=== PATIENT | female | born 1950 | race Caucasian/White ===

== ENCOUNTER 2025-05-19 16:12 | Inpatient (IN) | payer MEDICARE, OTHER, SELFPAY ==
[2025-05-19] VITALS (18 sets, daily range): BP systolic 115–200; BP diastolic 60–133
[2025-05-19 13:42] LABS: Glucose - Point of Care 156 mg/dl (70-99)
[2025-05-19] MEDS: ATIVAN 1 MG IV (13:45)
[2025-05-19 13:53] LABS: % Basophils 0.4 % (0-2); % Immature Granulocytes 0.3 % (0-0.5); % Lymphocytes 19.7 % (20.5-51.1); % Monocytes 5.6 % (1.7-9.3); Absolute Basophils 0.1 10^3/uL (0-0.2); Absolute Lymphocytes 2.7 10^3/uL (1.2-3.4); Absolute Monocytes 0.8 10^3/uL (0.1-0.6); Absolute Neutrophils 10.2 10^3/uL (1.4-6.5); Hematocrit 39.1 % (37.0-47.0); Hemoglobin 13.8 g/dL (12.0-16.0); Mean Corp Hgb Conc. 35.3 g/dL (33.0-37.0); Mean Corpuscular Hgb 31.9 pg (27.0-31.0); Mean Corpuscular Volume 90.3 fL (81.0-99.0); Mean Platelet Volume 9.6 fL (7.4-10.4); Nucleated Red Blood Cells % 0 %; Platelet Count 318 10^3/uL (130-400); Red Blood Cell Count 4.33 10^6/uL (4.20-5.40); Red Cell Dist. Width 14.6 % (11.5-14.5); White Blood Cell Count 13.8 10^3/uL (4.8-10.8)
[2025-05-19] MEDS: HALDOL 2.5 MG IV (13:53)
[2025-05-19 13:59] LABS: Urine Albumin 3+ (Neg - Trace); Urine Bilirubin Negative (Negative); Urine Character Cloudy (Clear); Urine Color Yellow; Urine Glucose Negative (Negative); Urine Ketone 3+ (Negative); Urine Leukocyte 3+ (Negative); Urine Nitrite Positive (Negative); Urine Occult Blood 3+ (Negative); Urine Urobilinogen Negative (Neg - 1+)
[2025-05-19 14:21] LABS: AST (SGOT) 27 U/L (14-36); Albumin 5.5 g/dl (3.5-5.0); Alkaline Phosphatase 71 U/L (38-126); Blood Urea Nitrogen 20 mg/dl (7-17); Calcium 11.2 mg/dl (8.4-10.2); Carbon Dioxide 20 mmol/L (22-30); Chloride 103 mmol/L (98-107); Glucose 166 mg/dl (70-99); Potassium 4.6 mmol/L (3.5-5.1); Sodium 141 mmol/L (135-145); Total Protein 8.1 g/dl (6.3-8.2); eGFR > 60.00
[2025-05-19 14:30] LABS: Urine Squamous Cell 0-2 /LPF (Few)
[2025-05-19 14:31] LABS: Urine Amorphous Seen
[2025-05-19 14:34] LABS: Urine Bacteria Many (Negative); Urine White Cell >100 /HPF (0-5)
[2025-05-19] MEDS: AZACTAM 2000 MG IV (14:37)
[2025-05-19 14:38] LABS: ALT (SGPT) < 30 U/L (0-35)
[2025-05-19 14:48] LABS: Lactic Acid 7.5 mmol/L (0.7-2.0)
--- NOTE | 2025-05-19 14:51 | ED.GENMED ---
History of Present Illness
General
Chief Complaint: Change in Mental Status
Source: patient and other (friend)
Exam Limitations: altered mental status
Time Seen by Provider: 05/19/25 13:25
Nursing documentation reviewed up to this point in time: agreed with
History of Present Illness
History of Present Illness:
Note:
CHIEF COMPLAINT(S)
Agitation.
HISTORY OF PRESENT ILLNESS
The patient is a 75-year-old female who presents with agitation, back pain. She has experienced this pain for several months, described as very severe, and has not responded to potential initial therapeutic interventions, possibly including an
epidural steroid injection, which did not alleviate the symptoms. The patient was on the way to a pain management appointment in another town when she became agitated, prompting emergency evaluation. The pain was described as incapacitating, and
upon arrival, she was moaning in pain and required assistance to leave the car, indicating significant distress and limitations.
ADDITIONAL HISTORY OBTAINED FROM SOURCES OTHER THAN THE PATIENT
According to a family member, the patient became acutely ill during a trip and required a stretcher for transport due to her severe back pain and associated distress.
ALLERGIES
The patient has allergy to penicillin that is unknown
REVIEW OF SYSTEMS
- Musculoskeletal: back pain.
- Neurological: Altered mental status noted as confusion.
PHYSICAL EXAM
-agitate, temperature 100.2 rectal
- Cardiovascular: Regular rate and rhythm, S1 and S2 present, no S3 or S4.
- Gastrointestinal: Abdomen soft and non-tender.
- Extremities: Normal pulses in all extremities, moving all extremities, no edema.
- Neurological: Confused, moving all extremities.
PLAN
- Evaluate and manage fever and altered mental status
- Consider imaging studies to assess underlying etiology of back pain.
- Pain management strategies to be implemented.
- Monitor neurological status given altered mental state.
DIFFERENTIAL DIAGNOSIS
-sepsis
-UTI
-Pneumonia
CARE-UPDATE
05/19/25 - 14:58
Patient remains calm following administration of Haldol. Chest X-ray returned inconclusive. Head X-ray shows no acute findings. Lab results indicate elevated lactate levels. Urinalysis confirms UTI, contributing to a sepsis diagnosis. Initiated IV
fluids and ordered IV Azactam. Patient to be admitted under the hospitalists care. Transfer planned to ICU for closer monitoring and management.
Disposition:
SUMMARY OF ENCOUNTER
The patient presented with agitation and back pain, accompanied by confusion and fever, and was found to have signs suggestive of a urinary tract infection contributing to sepsis.
DISPOSITION
The patient is to be admitted to the ICU for further monitoring and management under the hospitalist service.
ASSESSMENT
The patient has a urinary tract infection contributing to a sepsis diagnosis with accompanying altered mental status.
EMERGENCY TREATMENTS ADMINISTERED
The patient received intravenous fluids and intravenous Aztreonam (Azactam) for the treatment of the urinary tract infection.
REASSESSMENT
Following administration of Haldol, the patient remained calm.
MEDICATION RECONCILIATION
Aztreonam intravenous and Haloperidol administered for agitation.
MEDICAL DECISION MAKING
1. NUMBER & COMPLEXITY OF PROBLEMS: Chronic back pain, urinary tract infection, and sepsis affecting care. Differential diagnoses reviewed included sepsis, UTI, and pneumonia.
2. DATA REVIEWED:
- Labs reviewed indicated elevated lactate levels supporting a sepsis diagnosis.
- Urinalysis confirmed the presence of a urinary tract infection.
- Imaging included a chest X-ray, which was inconclusive, and a head X-ray showing no acute findings.
3. RISK: Consideration of admission due to the complexity and risk associated with the patient�s sepsis and altered mental status. ICU admission is appropriate due to the high risk and need for close monitoring.
PATHOLOGIES TO CONSIDER
Sepsis (fever + hypotension + AMS), Meningitis (fever + neck stiffness/AMS), Spinal epidural abscess (IVDU + back pain + fever/neuro signs) given the back pain and altered mental status.
Past History
Past History
ED Past Medical History: HTN, Hypercholesterolemia and NIDDM
ED Past Surgical History: Orthopedic (Rotator cuff repair, torn meniscus repair)
Social History
Tobacco: Non-smoker
Alcohol: None
Drug: None
Personal:
Phy Exam
Physical Exam
Physical Exam:
.
Course
Orders/Labs/Results
Orders:
Orders
05/19/25 13:29
Lorazepam [Ativan] 2 mg .ROUTE .STK-MED ONE
05/19/25 13:34
Straight cath- Treatment ONCE
05/19/25 13:35
CT Head W/o Iv Contrast Urgent
Comment:
Reason For Exam: agitation, altered mental status
Acetaminophen [Tylenol/Feverall] 650 mg .ROUTE .STK-MED ONE
05/19/25 13:36
IV Insert/Care/Rem.- Treatment PRN
Lorazepam [Ativan] 1 mg IV NOW STA
CR Chest Portable - 1 View Urgent
Comment:
Reason For Exam: fever
Reason Study Needs to be Portable: Patient Unstable
05/19/25 13:40
Complete Blood Count/With Diff Urgent
Comprehensive Metabolic Panel Urgent
Lactic Acid Q4H
Comment: CANCEL 2nd LACTIC ACID IF 1st LACTIC ACID IS LESS THAN 2
Blood Culture Q30M
PILY Source: Blood/Venous
Specimen Description:
05/19/25 13:42
Urinalysis Reflex To Culture Urgent
Date Specimen was Collected: 05/19/25
Time Specimen was Collected: 13:40
Urine Microscopic Reflex Cult Urgent
Urine Culture Urgent
PILY Source: U
Specimen Description:
Date Specimen was Collected: 05/19/25
Time Specimen was Collected: 13:40
05/19/25 13:47
Haloperidol Lactate [Haldol] 5 mg .ROUTE .STK-MED ONE
05/19/25 13:51
Haloperidol Lactate [Haldol] 2.5 mg IV NOW STA
05/19/25 13:54
Electrocardiogram (*1) Urgent
Reason for Study: Tachycardia
EKG- Treatment ONCE
05/19/25 14:15
Blood Culture Q30M
PILY Source: Blood/Venous
Specimen Description:
05/19/25 14:26
Aztreonam [Azactam] 2,000 mg IV NOW STA
05/19/25 14:35
Ammonia Urgent
05/19/25 14:51
0.9% Sodium Chloride 1000 ml [Nss] 2,100 ml IV NOW STA
05/19/25 17:45
Lactic Acid Q4H
Comment: CANCEL 2nd LACTIC ACID IF 1st LACTIC ACID IS LESS THAN 2
Abnormal Lab Results
05/19/25 05/19/25 05/19/25
13:33 13:40 13:42
WBC 13.8 H 10^3/uL
(4.8-10.8)
MCH 31.9 H pg
(27.0-31.0)
RDW 14.6 H %
(11.5-14.5)
Absolute Neuts (auto) 10.2 H 10^3/uL
(1.4-6.5)
Absolute Monos (auto) 0.8 H 10^3/uL
(0.1-0.6)
Lymphocytes % 19.7 L %
(20.5-51.1)
Carbon Dioxide 20 L mmol/L
(22-30)
BUN 20 H mg/dl
(7-17)
Glucose 166 H mg/dl
(70-99)
Lactic Acid 7.5 H* mmol/L
(0.7-2.0)
Calcium 11.2 H mg/dl
(8.4-10.2)
Total Bilirubin 3.0 H mg/dl
(0.2-1.3)
Ammonia
Albumin 5.5 H g/dl
(3.5-5.0)
Urine Ketones 3+ A
(Negative)
Ur Occult Blood Reflex 3+ A
(Negative)
Urine Nitrite (Reflex) Positive A
(Negative)
Leukocyte Esterase Rfl 3+ A
(Negative)
Urine RBC 7-10 A /HPF
(0-2)
Urine WBC (Reflex) >100 A /HPF
(0-5)
Urine Bacteria (Reflex) Many A
(Negative)
Urine Albumin (Reflex) 3+ A
(Neg - Trace)
POC Glucose 156 H mg/dl
(70-99)
05/19/25
14:35
WBC
MCH
RDW
Absolute Neuts (auto)
Absolute Monos (auto)
Lymphocytes %
Carbon Dioxide
BUN
Glucose
Lactic Acid
Calcium
Total Bilirubin
Ammonia < 9 L umol/L
(9-30)
Albumin
Urine Ketones
Ur Occult Blood Reflex
Urine Nitrite (Reflex)
Leukocyte Esterase Rfl
Urine RBC
Urine WBC (Reflex)
Urine Bacteria (Reflex)
Urine Albumin (Reflex)
POC Glucose
05/19/25 13:40
05/19/25 13:40
Vital Signs
Initial and Last Documented VS:
Initial Vital Signs
Temp
100.2 F
05/19/25 13:24
Last Documented Vital Signs
Temp Pulse Resp BP Pulse Ox
100.2 F 116 18 172/124 94
05/19/25 13:26 05/19/25 15:30 05/19/25 15:30 05/19/25 14:40 05/19/25 14:52
*Pulse Oximetry
SaO2: 94
Oxygen Mode of Delivery: Room air
*Critical Care Note
Total Time (30-74mins, 75-104mins- exclusive of procedures): 32
comment:
Critical care statement: A total of 32 minutes of critical care time was provided for this patient. This includes management of unstable vital signs, evaluation of the patient at bedside, reviewing the patient's pertinent medical records, discussion
with consultants, review of old EKGs and review of pertinent medical records. This time with separate from time utilized to perform the aforementioned documented procedures
ED Attending Note
-
Portions of this chart may have been created with voice recognition software.� Occasional wrong word or��sound alike� substitutions may have occurred due to the inherent limitations of voice recognition software.
Discharge Plan
Departure
Patient Disposition: Admit
Date of Disposition: 05/19/25
Time of Disposition: 14:47
Admit to: ICU
Presentation/result/management discussed w/ accepting MD/DO: Hospitalist
Patient with high blood pressure during this ER visit?: Yes
Condition: Fair
Discharge Problem:
Sepsis, Acute UTI (urinary tract infection), Acute alteration in mental status
Prescriptions:
No Action
lorazepam 0.5 MG tablet
0.5 mg PO HSPRN PRN (Reason: sleep)
metformin 750 MG tablet extended release 24 hr
750 mg PO BID
cholecalciferol (vitamin D3) 2,000 UNITS tablet
2,000 units PO DAILY
lisinopril 40 mg Tablet
40 mg PO DAILY
atorvastatin [Lipitor] 40 mg Tablet
40 mg PO QPM
Referrals:
Sanjuana Miranda MD [Family Provider, Family Practice]
Interventions
Interventions:
*Risk Screen - Suicide Last Done: 05/19/25 13:26
*General Assessment Last Done: 05/19/25 13:26
*Neglect/Abuse Screening Last Done: 05/19/25 13:26
*ED- Fall Risk Assessment Last Done: 05/19/25 13:26
*ED COVID-19 Vaccine History Last Done: 05/19/25 13:26
ED- Neurological Assessment Last Done: 05/19/25 13:26
Discharge Date and Time
Print Language: AFGHAN
[2025-05-19] MEDS: NSS 2100 ML IV (14:55)
[2025-05-19 15:02] LABS: Ammonia < 9 umol/L (9-30)
--- NOTE | 2025-05-19 15:20 | HPS.HSE ---
Family Physician
-
Family Physician: Sanjuana Miranda MD
Chief Complaint
-
agitation
History of Present Illness
75F HX HLD, HTN, DMT2, HX PCN allergy pw agitation and back pain.
- combative on arrival - verbally and physically in acut behavioral dysfunction
- report back pain for several months, reports very severe, not responded to potential initial therapeutic interventions, possibly including an epidural steroid injection, which did not alleviate the symptoms.
- on the way to a pain management appointment in another town when she became agitated, prompting emergency evaluation.
- pain was described as incapacitating, and upon arrival
- she was moaning in pain and required assistance to leave the car, indicating significant distress and limitations.
Medical History
Past Medical History
Past Medical History: Reports HTN, Hypercholesterolemia, NIDDM and Other (low back pain )
Past Surgical History: Reports Other (Not available due to AMS )
Social History
Unable to obtain full social history at this time due to: Other (in AMS )
Family History
Family History: Unable to Obtain (due to TME )
Allergies / Home Medications
Allergies reflects when Allergies were last updated in flux - [facility].
Home Medications with original date entered in flux - [facility]
Allergy/Medication List:
Allergies
Allergy/AdvReac Type Severity Reaction Status Date / Time
Penicillins Allergy Unknown Verified 11/27/20 02:26
Home Medications
cholecalciferol (vitamin D3) 50 mcg (2,000 unit) tablet 2,000 units PO DAILY 11/27/20
lorazepam 0.5 mg tablet 0.5 mg PO HSPRN PRN sleep 11/27/20
metformin 750 mg tablet,extended release 24 hr 750 mg PO BID 11/27/20
atorvastatin 40 mg tablet (Lipitor) 40 mg PO QPM 05/19/25
lisinopril 40 mg tablet 40 mg PO DAILY 05/19/25
Review of Systems
-
Unable to obtain full review of systems at this time due to: Other ( verbally and physically in acute behavioral dysfunction )
Physical Exam
Vital Signs
Vital Signs
Temp Pulse Resp BP Pulse Ox
100.2 F 123 29 172/124 94
05/19/25 13:26 05/19/25 14:15 05/19/25 13:45 05/19/25 14:40 05/19/25 14:52
Physical Exam
General: Fever (100.2 rectal ) and Other (lethargic and restless ); No Conversant
HEENT: NormoCephalic, Moist mucous membranes and Atraumatic
Respiratory: Clear
Cardiac: S1/S2 and Regular Rhythm; No Murmur or Rub
GI: Soft, Non Tender, Non Distended and Normal Bowel Sounds; No Organomegaly
Rectal: Deferred by Provider
Musculoskeletal: No Clubbing, No Cyanosis and No Edema
Skin: No Rash
Neuro: Nonfocal/grossly intact
Laboratory Results
-
05/19/25 13:40
05/19/25 13:40
Laboratory Results
Lactic Acid 7.5 mmol/L (0.7-2.0) H* 05/19/25 13:40
Total Bilirubin 3.0 mg/dl (0.2-1.3) H 05/19/25 13:40
AST 27 U/L (14-36) 05/19/25 13:40
ALT < 30 U/L (0-35) 05/19/25 13:40
Alkaline Phosphatase 71 U/L (38-126) 05/19/25 13:40
Data Reviewed
-
CT Scan: Report Reviewed by me
Lab Data: Labs Reviewed by me
Impression/Plan
-
05/19/25
13:24 05/19/25
13:26
Temp 100.2 F
Temp route: Rectal Rectal
Pulse 122
Resp Rate 19
Blood pressure 157/90
SaO2 99
Laboratory Tests
05/19/25 05/19/25 05/19/25
13:33 13:40 13:41
WBC 13.8 H
Absolute Neuts (auto) 10.2 H
Carbon Dioxide 20 L
BUN 20 H
Creatinine 0.7
eGFR > 60.00
Lactic Acid Pending
Calcium 11.2 H
Total Bilirubin 3.0 H
AST 27
ALT < 30
Alkaline Phosphatase 71
Ammonia
Albumin 5.5 H
Urine Nitrite (Reflex)
Leukocyte Esterase Rfl
Urine RBC
Urine WBC (Reflex)
POC Glucose 156 H
05/19/25 05/19/25
13:42 14:35
WBC
Absolute Neuts (auto)
Carbon Dioxide
BUN
Creatinine
eGFR
Lactic Acid
Calcium
Total Bilirubin
AST
ALT
Alkaline Phosphatase
Ammonia < 9 L
Albumin
Urine Nitrite (Reflex) Positive A
Leukocyte Esterase Rfl 3+ A
Urine RBC 7-10 A
Urine WBC (Reflex) >100 A
POC Glucose
UCX and BCx sent
CXR
Suspect mild infectious/inflammatory pneumonitis.
CT Head W/o Iv Contrast
No acute intracranial abnormality noted.
NO PRIOR hospitalist admission:
ASSESSMENT & PLAN
Pending Rx reconciliation
Severe sepsis( LA 7) due to UTI - s/p 2.1L NS and IV Aztreonam at ER
AMS with agitation due to hyperactive TME - associated verbally and physically in acute behavioral dysfunction - calm s/p IV Haldol and IV ativan at ER
Elevated TB 3.0 due to sepsis
LA 7
- CXR final report mild infectious/inflammatory pneumonitis
- NEG HCT for acute pathology
- Urinalysis confirms UTI
- switch to LR IV in place of NS
- c/w IV Aztreonam
- Trend LA, WCC and BCx and UCx
- PO PRN Risperidone M or IV Haldol PRN
- aspiration precaution due to TME - Nursing to screen for PO
- Fall precaution
- soft wrist restraint as indicated for acute behavioral dysfunction
- ICU consult
Known PMH
DMT2 - add ISS low, hod metformin
Benign HTN - hold Lisinopril , observe BP
HLD - c/w Lipitor
DVT Px: LMWH
Code: Full
ICU
Total Critical Care Time__50___ minutes. I was immediately available to the patient and staff. I personally examined, reviewed labs, diagnostic images/reports, interpretations, treatment plans, discussed patient care with other providers and
family or caregivers (if patient is unable to make decisions), entered orders as appropriate and documented the medical record.
[2025-05-19 17:25] LABS: Lactic Acid 2.7 mmol/L (0.7-2.0)
[2025-05-19] MEDS: PRECEDEX 100 IV ×2 (18:15→23:40)
--- NOTE | 2025-05-19 18:17 | CON.INTV ---
Consultation
Consultation Request
Date/Time Consultation Requested: 05/19/2025
Date/Time Consultation Performed: 05/19/2025
Requesting Provider: Dr. Sanders
Performing Provider: Dr. Ishan Diallo
Reason for Consultation: Severe sepsis-toxic metabolic encephalopathy
Medical History
-
History of Present Illness:
75-year-old woman with past medical history significant for hyperlipidemia, hypertension, type 2 diabetes, presented with back pain and agitation.
Patient unable to provide history.
Per records combative on arrival-not cooperative with physical exam or procedures.
Apparently complaining of back pain for several months at times very severe. Underwent prior epidural injections which were not effective at alleviating her pain.
On route to a pain medicine doctor for second opinion became agitated.
Patient was found to be febrile.
Tachycardic/hypertensive due to agitation.
Unable to provide history
Past Medical History
Past Medical History: Other (Unable to obtain)
Social History
Tobacco: Other (Unable to obtain)
Family History
Family History: Unable to Obtain (Due to toxic metabolic encephalopathy)
Allergies / Home Medications
Allergies
Allergy/AdvReac Type Severity Reaction Status Date / Time
Penicillins Allergy Unknown Verified 11/27/20 02:26
Home Medications
�Medication �Instructions �Recorded �Confirmed �Last Taken �Type
cholecalciferol (vitamin D3) 50 2,000 units PO DAILY 11/27/20 05/19/25 Unknown History
mcg (2,000 unit) tablet
lorazepam 0.5 mg tablet 0.5 mg PO HSPRN PRN sleep 11/27/20 05/19/25 Unknown History
metformin 750 mg tablet,extended 750 mg PO BID 11/27/20 05/19/25 Unknown History
release 24 hr
atorvastatin 40 mg tablet (Lipitor) 40 mg PO QPM 05/19/25 05/19/25 Unknown History
lisinopril 40 mg tablet 40 mg PO DAILY 06/19/25 06/19/25 Unknown History
Review of Systems
-
Unable to Obtain full review of systems at this time due to: Acuity
Vitals / Labs / Diagnostic Testing
Vital Signs
Temp Pulse Resp BP Pulse Ox
101.6 F H 122 21 149/133 96
05/19/25 18:13 05/19/25 18:00 05/19/25 18:00 05/19/25 18:00 05/19/25 18:00
Lab Data
05/19/25 13:40
05/19/25 13:40
Diagnostic Testing:
Physical Exam
-
HEENT: Normocephalic
Cardiovascular: S1/S2
Respiratory: Clear
GI: Soft
Neurology: Other (Agitated, moaning, not cooperative. Moving 4 extremities.)
Skin: Warm
General: Comfortable
Assessment
-
Toxic metabolic encephalopathy
CT head: Reviewed showed no intracranial abnormality.
Severe sepsis suspected-fevers/leukocytosis/increased lactic acid
UTI suspected- Urinalysis suggestive of UTI with many bacteria, positive nitrates and greater than 100 WBCs
Chest x-ray: Possible pneumonitis, no camryn infiltrate.
Acute on chronic back pain
Conditions present prior admission:
Type 2 diabetes
Hypertension
Hyperlipidemia
Chronic back pain
Assessment and plan:
Critically ill-agitated, combative toxic metabolic encephalopathy, febrile due to sepsis from urinary source.
I agree with current antibiotic
Blood culture
Trend lactic acid
Currently agitated-hypertensive and tachycardic
Follow fever curve and leukocytosis
-
Status post IV fluid resuscitation
Will reassess for further IV fluid needs depending on clinical situation
Pressors will be used if needed for persistent mean atrial blood pressure less than 65 mmHg despite IV fluids.
-
Agree with Haldol IV as needed
Can use oral Risperdal if patient allows.
Will start Precedex drip for behavior control
Patient take as needed benzodiazepine to sleep at home-May need to add some of that overnight depending on clinical situation
-
Glycemic control with insulin sliding scale.
Patient currently n.p.o.
-
N.p.o.
IV Tylenol as needed for temp greater than 1 1 �F
Head of bed elevation
Restraints
DVT prophylaxis with subcu Lovenox
-
Critical care statement: A total of 34 minutes of critical care time was provided for this patient today. This includes management of unstable vital signs, evaluation of the patient at bedside, reviewing the patient's pertinent medical records
including ventilator settings, arterial blood gases, radiographs, microbiology, laboratory evaluations and discussion with primary team, critical care nursing, and respiratory therapy.
[2025-05-19 18:18] LABS: Glucose - Point of Care 140 mg/dl (70-99)
[2025-05-19] MEDS: NOVOLOG FLEXPEN-LOW RESISTANCE SC (18:24)
[2025-05-19] MEDS: LIPITOR PO (18:25)
[2025-05-19] MEDS: LOVENOX 40 MG SC (18:28)
[2025-05-19] MEDS: OFIRMEV 100 IV (18:29)
[2025-05-19] MEDS: LR 1000 IV (18:31)
--- NOTE | 2025-05-19 19:33 | PTCARENOTE ---
Addendum entered by Ileana Perry RN 05/19/25 19:44:
Axillary temp down to 99.4.
Original Note:
Rec'd patient from ED around 1800. Patient agitated and restless in bed. Confused. Unable to reorient. Nonsensical speech. Restraints minimally effective. Tachycardic (ST). Hypertensive. Febrile; axillary temp of 101.6. Maitre D at bedside. Order
for Ofirmev obtained and administered. Precedex drip initiated. Patient with one iv site in RAC. Additional site placed in left forearm for iv infusions. Second set of blood cultures sent. Patient without void since prior to 1400. While scanning
bladder, patient saturated bed. Complete bed bath performed and purewick placed for I/O. Patient resting comfortably and vitals improved after interventions. HR down to 80-90's. RR 19-20. Pulse ox 96-97% on RA. BP remains elevated. OVEN DRIER TENDER notified.
--- NOTE | 2025-05-19 20:00 | PTCARENOTE ---
Pt received start of shift, HR SR w/ BBB on telemetry. Pt completely disoriented, uncooperative, combative. 4 point restraints and b/l mitts in place. Precedex infusing as charted in worklist. Pt incontinent of urine, purewick in place. yellow
urine. Remains on RA.
[2025-05-19 21:37] LABS: Lactic Acid 1.8 mmol/L (0.7-2.0)
[2025-05-19] MEDS: STERILE WATER FOR INJECTION 10 ML IV (22:05)
[2025-05-19] MEDS: AZACTAM 1000 MG IV (22:05)
[2025-05-19 23:12] LABS: Glucose - Point of Care 166 mg/dl (70-99)
[2025-05-19] MEDS: NOVOLOG FLEXPEN-LOW RESISTANCE 1 UNITS SC (23:54)
[2025-05-20] VITALS (16 sets, daily range): BP systolic 126–188; BP diastolic 58–85; PULSE 78; BMI 25.5
--- NOTE | 2025-05-20 | PTCARENOTE ---
Pt continues to be uncooperative and disoriented. Precedex gtt titrated according to worklist. No further changes in assessment.
--- NOTE | 2025-05-20 00:13 | PTCARENOTE ---
DP and PT pulses continue to be present with doppler. 2L NC overnight as pt POX dips to high 80s while asleep. Grimm care provided.
[2025-05-20] MEDS: PRECEDEX 100 IV (04:35)
[2025-05-20 04:36] LABS: % Basophils 0.3 % (0-2); % Eosinophils 0.3 % (0-6); % Immature Granulocytes 0.5 % (0-0.5); % Lymphocytes 33.9 % (20.5-51.1); % Monocytes 6.8 % (1.7-9.3); % Neutrophils 58.2 % (42.2-75.2); Absolute Monocytes 0.6 10^3/uL (0.1-0.6); Absolute Neutrophils 5.1 10^3/uL (1.4-6.5); Hematocrit 29.8 % (37.0-47.0); Hemoglobin 10.3 g/dL (12.0-16.0); Mean Corp Hgb Conc. 34.6 g/dL (33.0-37.0); Mean Corpuscular Volume 92.5 fL (81.0-99.0); Mean Platelet Volume 10.1 fL (7.4-10.4); Nucleated Red Blood Cells % 0 %; Platelet Count 177 10^3/uL (130-400); Red Blood Cell Count 3.22 10^6/uL (4.20-5.40); Red Cell Dist. Width 14.6 % (11.5-14.5); White Blood Cell Count 8.8 10^3/uL (4.8-10.8)
[2025-05-20] MEDS: LR 1000 IV (04:36)
[2025-05-20 04:52] LABS: ALT (SGPT) 17 U/L (0-35); AST (SGOT) 20 U/L (14-36); Albumin 3.5 g/dl (3.5-5.0); Alkaline Phosphatase 43 U/L (38-126); Blood Urea Nitrogen 15 mg/dl (7-17); Carbon Dioxide 23 mmol/L (22-30); Chloride 112 mmol/L (98-107); Glucose 162 mg/dl (70-99); Magnesium 1.5 mg/dl (1.6-2.3); Potassium 3.5 mmol/L (3.5-5.1); Sodium 139 mmol/L (135-145); Total Bilirubin 1.7 mg/dl (0.2-1.3); Total Protein 5.6 g/dl (6.3-8.2); eGFR > 60.00
[2025-05-20] MEDS: MAGNESIUM SULFATE 50 IV (05:42)
[2025-05-20] MEDS: KCL 260 MEQ IV (05:45)
[2025-05-20] MEDS: AZACTAM 1000 MG IV (06:05)
[2025-05-20] MEDS: STERILE WATER FOR INJECTION 10 ML IV ×2 (06:05→10:33)
--- NOTE | 2025-05-20 06:24 | PTCARENOTE ---
On waking for morning labs, pt drowsy but oriented to self and year. Able to remember she is in [facility]. Asking to call her mom and asking about her current situation. Repeats self occasionally, but much more oriented and appropriate
conversation. Cooperative. Precedex gtt weaning down as charted in worklist. Hygiene provided. New gown.
[2025-05-20] MEDS: NOVOLOG FLEXPEN-LOW RESISTANCE 1 UNITS SC (06:59)
[2025-05-20 07:09] LABS: Glucose - Point of Care 157 mg/dl (70-99)
[2025-05-20] MEDS: PROTONIX 40 MG PO (07:58)
--- NOTE | 2025-05-20 08:46 | PTCARENOTE ---
Pt received in bed @ 0700. Pt AAOx3. RASS -1. Soft limb restraints removed. Precedex gtt weaning. Anxious to 'call work and tell them I will not be in.' Friend arrived at bedside with patient's cell phone in order to facilitate. Pt stating chronic
back pain. SaO2 99%. Diminished breath sounds. Sinus sammie/Sinus rhythm on stablehand. HR 40s-60s. Pedal pulses palpable. No edema. Bowel sounds positive. Abdomen nontender. Pt incontinent of urine. Purewick external catheter intact.
[place] Chloride 20meq IV and Magnesium Sulfate 2 grams IV infusion completed.
[2025-05-20 09:05] LABS: Glycohemoglobin (HgbA1c) 5.6 % (4.0-5.6)
[2025-05-20] MEDS: MOTRIN 200 MG PO (10:32)
[2025-05-20] MEDS: ROCEPHIN 1000 MG IV (10:33)
--- NOTE | 2025-05-20 10:43 | W.PN.INTV ---
Today's Communication / Plan
Recommendations
Discontinue Precedex
Discontinue Haldol
Pain control
Change antibiotics to ceftriaxone and observe
Follow-up blood culture/urine culture
Glycemic control
Transfer to [facility]
Critical care team will sign off
Assessment
-
75-year-old woman with history of chronic back pain, type 2 diabetes, hypertension admitted through the emergency room after developing acute change in mental status. Found to be febrile, abnormal urinalysis consistent with UTI. Transferred to the
critical care unit on 05/19/2025.
Toxic metabolic encephalopathy
CT head: Reviewed showed no intracranial abnormality.
Severe sepsis suspected-fevers/leukocytosis/increased lactic acid
UTI suspected- Urinalysis suggestive of UTI with many bacteria, positive nitrates and greater than 100 WBCs
Chest x-ray: Possible pneumonitis, no camryn infiltrate.
Acute on chronic back pain
Conditions present prior admission:
Type 2 diabetes
Hypertension
Hyperlipidemia
Chronic back pain
Assessment and plan:
-
Clinically improved-mental status back to baseline.
Following commands
Continues to complain of chronic back pain
-
UTI/sepsis.
After discussing with patient she states that her penicillin allergy was mild greater than 10 years ago.
Discussed with pharmacy and will start ceftriaxone.
Discontinue aztreonam
Urine culture pending.
Blood culture-
Lactic acid has cleared
-
Hemodynamically stable-did not require vasopressors
Discontinue IV fluid
Never required vasopressors
-
Discontinue Precedex
Discontinue antipsychotic
Okay to take benzodiazepines at bedtime as she takes at home
-
Glycemic control with insulin sliding scale.
Advance diet
Restart metformin
-
Back pain: Status post epidural. Chronic problem.
Start Tylenol/Motrin/tramadol as she takes at home.
-
DVT prophylaxis with subcu Lovenox
-
Transfer to [facility].
Critical care team will sign off. Please call with questions.
Subjective Dataa
Subjective Data
Date of Service:
Date of Service: May 20, 2025
Chief Complaint: Content Analyst Follow Up (Severe sepsis/toxic metabolic encephalopathy)
Subjective:
Patient today feels better, mental status back to baseline
Continues to complain of back pain.
Denies shortness of breath.
Denies abdominal pain.
Denies nausea or vomiting.
Review of Systems
General: Fever (n)
Cardiopulmonary: Dyspnea (none at rest)
GI: Abdominal Pain (n) and Nausea (n)
Objective Data
Data Reviewed
Vital Signs / I&O / Oxygen:
Vital Signs
Temp Pulse Resp BP Pulse Ox
97.1 F 52 17 161/70 99
05/20/25 07:10 05/20/25 06:45 05/20/25 06:45 05/20/25 06:00 05/20/25 08:11
Intake and Output
05/19/25 05/20/25 05/21/25
06:59 06:59 06:59
Output Total 200 / 200
Balance -200 / -200
SaO2 99
Physical Exam
General: Comfortable
HEENT: Normocephalic
Cardiovascular: S1-S2
Respiratory: Clear and Non-Labored Respirations
GI: Soft and Non Distended
Neurology: Awake, Alert, Oriented and No Motor Deficits
Skin: Warm
Labs/Micro/Reports
Lab Data
05/20/25 03:57
05/20/25 03:57
Microbiology
05/19/25 13:42 Urine Urine Culture - Preliminary
[2025-05-20] MEDS: TYLENOL 650 MG PO ×3 (11:09→21:39)
--- NOTE | 2025-05-20 11:25 | W.PN.HOSP.TC ---
Addendum entered and electronically signed by Pancho Chen MD 05/20/25 16:49:
Will start aspirin
Addendum entered and electronically signed by Pancho Chen MD 05/20/25 16:36:
Received [place] text communication but patient declined echocardiogram due to severe low back pain.
Will continue pain management and an attempt echocardiogram later.
Continue troponin monitoring
Addendum entered and electronically signed by Pancho Chen MD 05/20/25 12:29:
Follow-up ECG today with sinus bradycardia, marked T wave abnormality with concern for anterior ischemia, prolonged QT
Patient chest pain-free with no prior history of CAD.
Continue telemetry monitoring
Serial cardiac markers
Echocardiogram
Original Note:
Today's Communication/Plan
-
See plan
Assessment / Plan
Assessment / Plan
Impression:
Toxic metabolic encephalopathy
Severe sepsis present on admission (fever, leukocytosis, increased lactic acid level.
UTI.
Prolonged QT
Normocytic anemia
Conditions prior to admission:
Chronic back pain with recent ANJALI injection
Diabetes type 2
IDDM
Essential hypertension
Dyslipidemia
Plan
Toxic metabolic encephalopathy likely multifactorial in the settings of UTI and sepsis as well as likely related to medications including benzodiazepines and tramadol.
Required ICU monitoring and treatment with Precedex.
Mental status improved and currently back to baseline.
CT scan of the head with no acute abnormalities.
Patient reports taking low-dose of lorazepam 0.5 mg as needed at bedtime. Will continue. No clinical suspicion for benzodiazepine withdrawal
Sepsis present on admission
Suspect secondary to UTI.
Blood cultures pending
Urine cultures pending
Antibiotics narrowed to ceftriaxone
Prolonged QT
Off Haldol.
Chronic back pain
Patient reports ANJALI weeks prior to presentation.
No recent imaging available in the system.
Exam nonfocal with no clinical evidence of cord compression.
Consider inpatient imaging if ID workup jesting other than urinary tract infection source.
Analgesia. Patient reports taking tramadol 50 mg, ibuprofen and Tylenol prior to admission.
Will start oxycodone 5 mg every 6 hours as needed. Add gabapentin 300 mg 3 times daily. Continue Tylenol standing dose
Diabetes type 2.
Hemoglobin A1c 5.6.
Reintroduce metformin.
Essential hypertension.
Continue lisinopril.
Dyslipidemia, continue Lipitor
Anticipated Discharge: 24 - 48 hours
Subjective/Interval History
-
Date of Service: May 20, 2025
Objective Data
-
Labs:
Laboratory Results
05/20/25
03:57
WBC 8.8
Hgb 10.3 L D
Hct 29.8 L
Plt Count 177 D
Sodium 139
Potassium 3.5
Chloride 112 H
Carbon Dioxide 23
BUN 15
Creatinine 0.5 L
Glucose 162 H
Calcium 9.0 D
Total Bilirubin 1.7 H D
AST 20
ALT 17
Alkaline Phosphatase 43
Vital Signs:
Vital Signs
Temp Pulse Resp BP Pulse Ox
97.2 F 61 16 138/70 99
05/20/25 11:00 05/20/25 10:45 05/20/25 10:45 05/20/25 10:00 05/20/25 10:45
I&O
05/19/25 05/20/25 05/21/25
06:59 06:59 06:59
Output Total 200 / 200
Balance -200 / -200
Physical Exam
-
General: Well Developed and No Apparent Distress
HEENT: Normocephalic, Atraumatic and Moist Mucous Membranes
Respiratory: Clear to Auscultation
Cardiac: Regular Rhythm and S1/S2; Negative Murmur, Rub or Gallop
GI: Soft, Nontender, Nondistended and Normal Bowel Sounds; Negative Organomegaly
Rectal: Deferred by Provider
Musculoskeletal: No Clubbing, No Cyanosis and No Edema
Skin: Negative Rash
Neuro: Nonfocal/Grossly Intact
[2025-05-20] MEDS: ZESTRIL 40 MG PO (12:04)
[2025-05-20] MEDS: ROXICODONE 5 MG PO ×3 (12:04→22:39)
[2025-05-20] MEDS: TYLENOL PO (12:08)
[2025-05-20 12:23] LABS: Glucose - Point of Care 107 mg/dl (70-99)
--- NOTE | 2025-05-20 13:00 | CM ---
Met with patient at bedside; initial assessment completed
Pharmacy verified: [facility] @ [address] [place] [address]
Patient reported she live her friend, Mari; multilevel home; no steps to enter; 12-13 steps to 2nd floor bedroom and bath that has tub w/shower; railing on stairs; powder room 1st floor
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
DME: [employer]
NO SNF or Home Health utilization history. If Home Health services are recommended, she is agreeable
Friend, Mari, will transport home
Plan: Discharge to home when medically stable; Electron Beam Welder will monitor for discharge needs/services
[2025-05-20] MEDS: NOVOLOG FLEXPEN-LOW RESISTANCE SC ×2 (13:04→17:09)
[2025-05-20] MEDS: GLUCOPHAGE XR EXTENDED RELEASE 750 MG PO ×2 (13:22→17:10)
[2025-05-20 13:58] LABS: Troponin I 0.016 ng/ml
[2025-05-20] MEDS: NEURONTIN 300 MG PO ×2 (16:36→21:39)
[2025-05-20 17:06] LABS: Glucose - Point of Care 105 mg/dl (70-99)
[2025-05-20] MEDS: LIPITOR 40 MG PO (17:10)
[2025-05-20] MEDS: LOVENOX 40 MG SC (17:17)
[2025-05-20] MEDS: ASPIRIN 325 MG PO (17:17)
[2025-05-20 21:50] LABS: Glucose - Point of Care 128 mg/dl (70-99)
[2025-05-21] MEDS: TYLENOL PO (00:18)
[2025-05-21 03:27] VITALS: BP 150/62
[2025-05-21] MEDS: TYLENOL 650 MG PO ×5 (05:03→19:54)
[2025-05-21 05:11] LABS: ALT (SGPT) 21 U/L (0-35); AST (SGOT) 33 U/L (14-36); Albumin 3.8 g/dl (3.5-5.0); Alkaline Phosphatase 52 U/L (38-126); Blood Urea Nitrogen 12 mg/dl (7-17); Calcium 9.4 mg/dl (8.4-10.2); Carbon Dioxide 24 mmol/L (22-30); Chloride 111 mmol/L (98-107); Estimated Creatinine Clearance 73 ml/min; Glucose 128 mg/dl (70-99); Potassium 3.7 mmol/L (3.5-5.1); Sodium 140 mmol/L (135-145); Total Bilirubin 1.7 mg/dl (0.2-1.3); Total Protein 5.9 g/dl (6.3-8.2); eGFR > 60.00
[2025-05-21 05:22] LABS: Troponin I 0.019 ng/ml
[2025-05-21 06:00] VITALS: BMI 25.3
[2025-05-21 07:35] VITALS: BP 166/72
[2025-05-21 07:40] LABS: Glucose - Point of Care 132 mg/dl (70-99)
[2025-05-21] MEDS: NOVOLOG FLEXPEN-LOW RESISTANCE SC ×3 (08:06→16:37)
[2025-05-21] MEDS: GLUCOPHAGE XR EXTENDED RELEASE 750 MG PO ×2 (08:07→17:10)
[2025-05-21] MEDS: NEURONTIN 300 MG PO ×3 (08:07→21:19)
[2025-05-21] MEDS: ZESTRIL 40 MG PO (08:08)
[2025-05-21] MEDS: ROXICODONE 5 MG PO ×2 (08:09→14:11)
[2025-05-21 08:34] LABS: % Basophils 0.3 % (0-2); % Eosinophils 0.6 % (0-6); % Immature Granulocytes 0.3 % (0-0.5); % Lymphocytes 19.4 % (20.5-51.1); % Monocytes 5.5 % (1.7-9.3); % Neutrophils 73.9 % (42.2-75.2); Absolute Eosinophils 0.1 10^3/uL (0-0.7); Absolute Lymphocytes 1.7 10^3/uL (1.2-3.4); Absolute Monocytes 0.5 10^3/uL (0.1-0.6); Absolute Neutrophils 6.5 10^3/uL (1.4-6.5); Hematocrit 31.2 % (37.0-47.0); Hemoglobin 10.8 g/dL (12.0-16.0); Mean Corp Hgb Conc. 34.6 g/dL (33.0-37.0); Mean Corpuscular Hgb 31.5 pg (27.0-31.0); Mean Platelet Volume 9.9 fL (7.4-10.4); Nucleated Red Blood Cells % 0 %; Platelet Count 198 10^3/uL (130-400); Red Blood Cell Count 3.43 10^6/uL (4.20-5.40); Red Cell Dist. Width 14.6 % (11.5-14.5); White Blood Cell Count 8.8 10^3/uL (4.8-10.8)
[2025-05-21 09:00] LABS: Urine Albumin Negative (Neg - Trace); Urine Bilirubin Negative (Negative); Urine Character Clear (Clear); Urine Color Yellow; Urine Glucose Negative (Negative); Urine Ketone Negative (Negative); Urine Leukocyte Negative (Negative); Urine Nitrite Negative (Negative); Urine Occult Blood Negative (Negative); Urine Specific Gravity 1.015 (<1.030); Urine Urobilinogen Negative (Neg - 1+)
[2025-05-21] MEDS: PROTONIX PO (09:46)
[2025-05-21] MEDS: ROCEPHIN 1000 MG IV (09:46)
[2025-05-21] MEDS: STERILE WATER FOR INJECTION 10 ML IV (09:47)
[2025-05-21 11:28] LABS: Iron 58 ug/dl (37-170); Magnesium 1.9 mg/dl (1.6-2.3)
[2025-05-21 11:34] VITALS: BP 120/55
[2025-05-21 11:37] LABS: Percent Saturation 22 % (20-50); Total Iron Binding Capacity 253 ug/dl (265-497)
[2025-05-21 11:48] LABS: Glucose - Point of Care 125 mg/dl (70-99)
--- NOTE | 2025-05-21 11:52 | W.PN.HOSP.TC ---
Today's Communication/Plan
-
Get OP MRI report
ECHO
EKG
AB
Await Cx
Assessment / Plan
Assessment / Plan
75-year-old with agitation. Reportedly had back pain for months not responded to treatment as outpatient
CXR-mild infectious/inflammatory pneumonitis.
CT head-no acute intracranial abnormality
EKG-QTc 534. Marked T wave abnormality consider anterior ischemia.
CVS: S1-S2 normal
Chest: CTA B/L
Abdomen: Soft, NT / Bowel sounds present
Extremities: Mild lumbar area discomfort with palpation. No pedal edema no weakness in the legs
RELATIONSHIP MGR: Non focal exam
# Severe sepsis secondary to UTI
Lactic acidosis due to above-resolved
Blood cultures-negative
Urine cultures-pending
Continue ceftriaxone
# TME secondary to infection and medicine such as benzos and tramadol
Status post Precedex in the ICU
CT head without any acute changes
# Prolonged QT-watch on telemetry
Routine echo
# Chronic back pain with recent ANJALI.
Was taking tramadol, ibuprofen and Tylenol prior to admission
Started on oxycodone, gabapentin and Tylenol
Patient stated that she had had an MRI recently. Will need to get the records.
# Normocytic anemia-iron studies unremarkable. B12 pending
# Hypomagnesemia-replaced.
# Diabetes hemoglobin A1c 5.6
Continue metformin, Accu-Cheks and sliding scale coverage
# Hypertension-continue lisinopril
# Hyperlipidemia-continue Lipitor
# DVT prophylaxis-Lovenox
# Full code
Discussed with nursing
Part of this note was created using voice recognition system. Occasional wrong word or��sound alike� substitutions may have inadvertently occurred due to the inherent limitations of voice recognition software. If noted kindly bring it to my
attention for correction.
Anticipated Discharge: 24 - 48 hours
Subjective/Interval History
-
Date of Service: May 21, 2025
Objective Data
-
Labs:
Laboratory Results
05/21/25 05/21/25
04:38 08:02
WBC 8.8
Hgb 10.8 L
Hct 31.2 L
Plt Count 198
Sodium 140
Potassium 3.7
Chloride 111 H
Carbon Dioxide 24
BUN 12
Creatinine 0.5 L
Glucose 128 H
Calcium 9.4
Total Bilirubin 1.7 H
AST 33
ALT 21
Alkaline Phosphatase 52
Vital Signs:
Vital Signs
Temp Pulse Resp BP Pulse Ox
98.6 F 83 16 120/55 98
05/21/25 11:34 05/21/25 11:34 05/21/25 11:34 05/21/25 11:34 05/21/25 11:34
I&O
05/20/25 05/21/25 05/22/25
06:59 06:59 06:59
Intake Total 720 / 720
Output Total 200 / 200
Balance -200 / -200 720 / 720
[2025-05-21 12:17] LABS: Vitamin B12 312 pg/ml (239-931)
[2025-05-21 15:28] VITALS: BP 161/106
[2025-05-21 16:34] LABS: Glucose - Point of Care 134 mg/dl (70-99)
[2025-05-21] MEDS: LIPITOR 40 MG PO (17:10)
[2025-05-21] MEDS: LOVENOX 40 MG SC (17:11)
[2025-05-21 19:40] VITALS: BP 166/78
[2025-05-21 21:52] LABS: Glucose - Point of Care 139 mg/dl (70-99)
[2025-05-21 23:08] VITALS: BP 155/82
[2025-05-22] VITALS (7 sets, daily range): BP systolic 125–188; BP diastolic 65–99; BMI 25.2
[2025-05-22] MEDS: TYLENOL 650 MG PO ×5 (00:56→23:26)
[2025-05-22] MEDS: ROXICODONE 5 MG PO (05:28)
[2025-05-22 07:31] LABS: Glucose - Point of Care 144 mg/dl (70-99)
[2025-05-22 08:09] LABS: Hematocrit 31.4 % (37.0-47.0); Hemoglobin 11.2 g/dL (12.0-16.0); Mean Corp Hgb Conc. 35.7 g/dL (33.0-37.0); Mean Corpuscular Hgb 32.2 pg (27.0-31.0); Mean Corpuscular Volume 90.2 fL (81.0-99.0); Mean Platelet Volume 9.5 fL (7.4-10.4); Platelet Count 198 10^3/uL (130-400); Red Blood Cell Count 3.48 10^6/uL (4.20-5.40); Red Cell Dist. Width 14.2 % (11.5-14.5); White Blood Cell Count 7.4 10^3/uL (4.8-10.8)
[2025-05-22] MEDS: NEURONTIN 300 MG PO ×3 (08:09→21:11)
[2025-05-22] MEDS: ZESTRIL 40 MG PO (08:09)
[2025-05-22] MEDS: GLUCOPHAGE XR EXTENDED RELEASE 750 MG PO ×2 (08:09→17:02)
[2025-05-22] MEDS: TYLENOL PO ×2 (08:10→11:48)
[2025-05-22] MEDS: NOVOLOG FLEXPEN-LOW RESISTANCE SC ×3 (08:11→16:24)
[2025-05-22] MEDS: PROTONIX PO (08:12)
[2025-05-22 08:29] LABS: Blood Urea Nitrogen 11 mg/dl (7-17); Calcium 9.5 mg/dl (8.4-10.2); Carbon Dioxide 24 mmol/L (22-30); Chloride 107 mmol/L (98-107); Estimated Creatinine Clearance 73 ml/min; Glucose 139 mg/dl (70-99); Magnesium 1.8 mg/dl (1.6-2.3); Potassium 3.5 mmol/L (3.5-5.1); Sodium 140 mmol/L (135-145); eGFR > 60.00
[2025-05-22] MEDS: ROCEPHIN 1000 MG IV (10:03)
[2025-05-22] MEDS: STERILE WATER FOR INJECTION 10 ML IV (10:03)
[2025-05-22] MEDS: MILK OF MAGNESIA 30 ML PO (10:24)
[2025-05-22] MEDS: MIRALAX 17 GRAMS PO (10:24)
[2025-05-22] MEDS: SENOKOT PO (10:26)
[2025-05-22 11:46] LABS: Glucose - Point of Care 141 mg/dl (70-99)
--- NOTE | 2025-05-22 14:15 | W.PN.HOSP.TC ---
Today's Communication/Plan
-
Continue AB
MRI L spine
Assessment / Plan
Assessment / Plan
75-year-old with agitation. Reportedly had back pain for months not responded to treatment as outpatient
CXR-mild infectious/inflammatory pneumonitis.
CT head-no acute intracranial abnormality
EKG-QTc 534. Marked T wave abnormality consider anterior ischemia.
CVS: S1-S2 normal
Chest: CTA B/L
Abdomen: Soft, NT / Bowel sounds present
Extremities: Mild lumbar area discomfort with palpation. No pedal edema no weakness in the legs
NIGHT GUARD: Non focal exam
# Severe sepsis secondary to UTI
Lactic acidosis due to above-resolved
Blood cultures-negative
Urine cultures- E Coli
Continue ceftriaxone
# TME secondary to infection and medicine such as benzos and tramadol
Status post Precedex in the ICU
CT head without any acute changes
# Prolonged QT-watch on telemetry
Routine echo
Rpt EKG tomorrow
# Chronic back pain with recent ANJALI.
Was taking tramadol, ibuprofen and Tylenol prior to admission
Started on oxycodone, gabapentin and Tylenol
Patient stated that she had had an MRI January- We dont have records
Got ANJALI April 11.
Pain did not get better
Now pain is worse
Get an MRI here with fever on presentation and increasing pain.
# Normocytic anemia-iron studies unremarkable. B12 Low normal. Replace
# Constipation- Resolved.
# Hypomagnesemia-replaced.
# Diabetes hemoglobin A1c 5.6
Continue metformin, Accu-Cheks and sliding scale coverage
# Hypertension-continue lisinopril
# Hyperlipidemia-continue Lipitor
# DVT prophylaxis-Lovenox
# Full code
Discussed with nursing
Part of this note was created using voice recognition system. Occasional wrong word or��sound alike� substitutions may have inadvertently occurred due to the inherent limitations of voice recognition software. If noted kindly bring it to my
attention for correction.
Anticipated Discharge: Within 24 hours
Subjective/Interval History
-
Date of Service: May 22, 2025
Objective Data
-
Labs:
Laboratory Results
05/22/25
07:49
WBC 7.4
Hgb 11.2 L
Hct 31.4 L
Plt Count 198
Sodium 140
Potassium 3.5
Chloride 107
Carbon Dioxide 24
BUN 11
Creatinine 0.5 L
Glucose 139 H
Calcium 9.5
Vital Signs:
Vital Signs
Temp Pulse Resp BP Pulse Ox
97.8 F 87 17 151/99 97
05/22/25 11:05 05/22/25 11:05 05/22/25 11:05 05/22/25 11:05 05/22/25 11:05
I&O
05/21/25 05/22/25 05/23/25
06:59 06:59 06:59
Intake Total 720 / 720 890 / 890
Balance 720 / 720 890 / 890
[2025-05-22 16:25] LABS: Glucose - Point of Care 137 mg/dl (70-99)
[2025-05-22] MEDS: LOVENOX 40 MG SC (17:02)
[2025-05-22] MEDS: LIPITOR 40 MG PO (17:04)
[2025-05-22] MEDS: SENOKOT 17.2 MG PO (19:39)
[2025-05-22 21:30] LABS: Glucose - Point of Care 136 mg/dl (70-99)
--- NOTE | 2025-05-22 21:51 | PTCARENOTE ---
SODA DRY HOUSE OPERATOR made aware of patient`s BP. No new orders. Will reassess BP at 2300.
--- NOTE | 2025-05-22 23:46 | PTCARENOTE ---
Patient`s 2300 BP was 175/89. Patient is asymptomatic. Nurse Practitioner made aware. No new orders. Will reassess blood pressure at 0300.
[2025-05-23] VITALS (9 sets, daily range): BP systolic 150–198; BP diastolic 69–108; BMI 24.8
[2025-05-23] MEDS: TYLENOL 650 MG PO ×6 (03:20→23:36)
[2025-05-23] MEDS: APRESOLINE 5 MG IV (04:00)
[2025-05-23] MEDS: ZESTRIL 40 MG PO (06:00)
--- NOTE | 2025-05-23 06:12 | PTCARENOTE ---
RN took manual blood pressure to reevaluate patient after administration of hydralazine. Manual BP was 198/108. Patient is asymptomatic. CLINICAL CARE MANAGER made aware. Per CLINICAL CARE MANAGER, ok for RN to give Lisinopril early.
[2025-05-23 07:28] LABS: Glucose - Point of Care 129 mg/dl (70-99)
[2025-05-23] MEDS: NOVOLOG FLEXPEN-LOW RESISTANCE SC ×2 (07:30→16:41)
[2025-05-23] MEDS: MIRALAX PO (08:32)
[2025-05-23] MEDS: SENOKOT PO ×2 (08:32→20:13)
[2025-05-23] MEDS: ROCEPHIN 1000 MG IV (10:28)
[2025-05-23] MEDS: STERILE WATER FOR INJECTION 10 ML IV (10:28)
[2025-05-23] MEDS: NEURONTIN 300 MG PO ×3 (10:30→20:13)
[2025-05-23] MEDS: VITAMIN B-12 1000 MCG PO (10:30)
[2025-05-23] MEDS: GLUCOPHAGE XR EXTENDED RELEASE 750 MG PO ×2 (10:31→17:37)
[2025-05-23] MEDS: PROTONIX 40 MG PO (10:31)
[2025-05-23] MEDS: ROXICODONE 5 MG PO ×2 (12:23→18:28)
--- NOTE | 2025-05-23 12:41 | W.PN.HOSP.TC ---
Today's Communication/Plan
-
Adjust analgesic regimen with oxycodone and gabapentin
Continue antibiotics covering UTI
MRI of the back
PT assessment and discharge plan
Assessment / Plan
Assessment / Plan
75-year-old with agitation. Reportedly had back pain for months not responded to treatment as outpatient
CXR-mild infectious/inflammatory pneumonitis.
CT head-no acute intracranial abnormality
EKG-QTc 534. Marked T wave abnormality consider anterior ischemia.
# Severe sepsis secondary to UTI
Lactic acidosis due to above-resolved
Blood cultures-negative
Urine cultures- E Coli
Continue ceftriaxone
# TME secondary to infection and medicine such as benzos and tramadol
Status post Precedex in the ICU
CT head without any acute changes
Resolved
# Prolonged QT-watch on telemetry
Routine echo pending
Rpt EKG tomorrow
# Chronic back pain with recent ANJALI.
Was taking tramadol, ibuprofen and Tylenol prior to admission
Started on oxycodone, gabapentin and Tylenol
Patient stated that she had had an MRI January- We dont have records
Got ANJALI April 11.
Patient reports pain back to baseline.
Start oxycodone and gabapentin.
Continue physical therapy assessment
Given presentation with fever and recent ANJALI injection, agree with imaging.
# Normocytic anemia-iron studies unremarkable. B12 Low normal. Replace
# Constipation- Resolved.
# Hypomagnesemia-replaced.
# Diabetes hemoglobin A1c 5.6
Continue metformin, Accu-Cheks and sliding scale coverage
# Hypertension-continue lisinopril
# Hyperlipidemia-continue Lipitor
# DVT prophylaxis-Lovenox
# Full code
Discussed with nursing
Part of this note was created using voice recognition system. Occasional wrong word or��sound alike� substitutions may have inadvertently occurred due to the inherent limitations of voice recognition software. If noted kindly bring it to my
attention for correction.
Anticipated Discharge: 24 - 48 hours
Subjective/Interval History
-
Date of Service: May 23, 2025
Objective Data
-
Vital Signs:
Vital Signs
Temp Pulse Resp BP Pulse Ox
98.1 F 97 18 190/78 97
05/23/25 11:23 05/23/25 11:23 05/23/25 11:23 05/23/25 11:24 05/23/25 11:23
I&O
05/22/25 05/23/25 05/24/25
06:59 06:59 06:59
Intake Total 890 / 890 1130 / 1130 480 / 480
Balance 890 / 890 1130 / 1130 480 / 480
Physical Exam
-
General: Well Developed and No Apparent Distress
HEENT: Normocephalic, Atraumatic and Moist Mucous Membranes
Respiratory: Clear to Auscultation
Cardiac: Regular Rhythm and S1/S2; Negative Murmur, Rub or Gallop
GI: Soft, Nontender, Nondistended and Normal Bowel Sounds; Negative Organomegaly
Rectal: Deferred by Provider
Musculoskeletal: No Clubbing, No Cyanosis and No Edema
Skin: Negative Rash
Neuro: Nonfocal/Grossly Intact
[2025-05-23 12:53] LABS: Glucose - Point of Care 163 mg/dl (70-99)
[2025-05-23] MEDS: NOVOLOG FLEXPEN-LOW RESISTANCE 1 UNITS SC (13:40)
[2025-05-23] MEDS: APRESOLINE 10 MG IV (15:55)
[2025-05-23 16:35] LABS: Glucose - Point of Care 136 mg/dl (70-99)
--- NOTE | 2025-05-23 16:47 | CM ---
Chart reviewed and plan is for patient to return to home when stable.
Plan; Home when stable.
[2025-05-23] MEDS: LOVENOX 40 MG SC (17:37)
[2025-05-23] MEDS: LIPITOR 40 MG PO (17:37)
[2025-05-24 03:37] VITALS: BP 149/84
[2025-05-24] MEDS: TYLENOL 650 MG PO ×2 (04:45→11:24)
[2025-05-24 06:00] VITALS: BMI 24.8
[2025-05-24 07:20] VITALS: BP 167/84
[2025-05-24 07:25] LABS: Glucose - Point of Care 156 mg/dl (70-99)
[2025-05-24] MEDS: ZESTRIL 40 MG PO (07:33)
[2025-05-24] MEDS: PROTONIX 40 MG PO (07:33)
[2025-05-24] MEDS: GLUCOPHAGE XR EXTENDED RELEASE 750 MG PO (07:33)
[2025-05-24] MEDS: NEURONTIN 300 MG PO (07:33)
[2025-05-24] MEDS: VITAMIN B-12 1000 MCG PO (07:33)
[2025-05-24] MEDS: ROXICODONE 5 MG PO (07:34)
[2025-05-24] MEDS: SENOKOT 17.2 MG PO (07:34)
[2025-05-24] MEDS: MIRALAX 17 GRAMS PO (07:34)
[2025-05-24] MEDS: ATIVAN 1 MG SL (07:50)
[2025-05-24] MEDS: TYLENOL PO ×2 (08:59→11:24)
[2025-05-24] MEDS: NOVOLOG FLEXPEN-LOW RESISTANCE 1 UNITS SC (08:59)
[2025-05-24] MEDS: ROCEPHIN 1000 MG IV (10:01)
[2025-05-24] MEDS: STERILE WATER FOR INJECTION 10 ML IV (10:02)
--- NOTE | 2025-05-24 10:58 | W.DS.TRANS ---
DC Summary - Combat Control
-
Discharge Instructions:
Discharge Diagnosis/Procedures Urinary tract infection
Toxic metabolic encephalopathy
Lower back pain, chronic
Diet Diabetic, Carb Controlled
Instructions:
Stand-Alone Forms:
Changes to Home Medications: Yes
Discharge Medications:
DC Medications w/original date entered in appweevr
cholecalciferol (vitamin D3) 50 mcg (2,000 unit) tablet 2,000 units PO DAILY Supplement 11/27/20
lorazepam 0.5 mg tablet 0.5 mg PO HSPRN PRN sleep 11/27/20
metformin 750 mg tablet,extended release 24 hr 750 mg PO BID Diabetes 11/27/20
atorvastatin 40 mg tablet (Lipitor) 40 mg PO QPM High Cholesterol 05/19/25
lisinopril 40 mg tablet 40 mg PO DAILY Blood Pressure 05/19/25
cephalexin 500 mg capsule 500 mg PO BID #10 caps 05/24/25
gabapentin 300 mg capsule 300 mg PO TID #90 caps 05/24/25
oxycodone 5 mg tablet 5 mg PO Q6H PRN severe pain #30 tabs 05/24/25
Home Medication Changes
Oxycodone, gabapentin initiated for chronic back pain
Completing course of antibiotics with cephalexin for additional 5 days
Pending Results: No
[2025-05-24 11:15] VITALS: BP 171/90
[2025-05-24] MEDS: APRESOLINE 10 MG IV (11:23)
--- NOTE | 2025-05-24 11:25 | CM ---
CM reviewed chart and noted dc order
Bedside meeting with pt
VN discussed as per therapy recs
She prefers outpt therapy due to good past experience
IMM verbally reviewed- copy provided
Dr Chen will tube script
She will call friend for ride home
Discharge Disposition- home with outpt PT/OT- friend transport
[2025-05-24 11:29] LABS: Glucose - Point of Care 134 mg/dl (70-99)
[2025-05-24] MEDS: NOVOLOG FLEXPEN-LOW RESISTANCE SC (11:32)
[2025-05-24 12:50] VITALS: BP 137/83
== END 2025-05-24 13:18 | disposition home or self-care (01) | DRG 871 ==
LOC: 4 WEST ACU 16:12
PROVIDERS: Hospitalist; ADMITTING PHYSICIAN Internal Medicine; ATTENDING PHYSICIAN Internal Medicine; CONSULT PHYSICIAN Internal Medicine Critical Care Medicine; EMERGENCY PHYSICIAN Emergency Medicine; FAMILY PHYSICIAN Family Medicine
DX: A41.9 Sepsis, unspecified organism (principal); G92.8 Other toxic encephalopathy; N39.0 Urinary tract infection, site not specified; E87.20 Acidosis, unspecified; R65.20 Severe sepsis without septic shock; G89.29 Other chronic pain; E11.9 Type 2 diabetes mellitus without complications; I10 Essential (primary) hypertension; E78.00 Pure hypercholesterolemia, unspecified; Z79.84 Long term (current) use of oral hypoglycemic drugs; Z78.1 Physical restraint status; Z88.0 Allergy status to penicillin; D64.9 Anemia, unspecified; E83.42 Hypomagnesemia; Z79.899 Other long term (current) drug therapy
CPT/HCPCS: 51701; 70450; 71045; 72148; 80048; 80053; 81003; 81015; 82140; 82607; 82728; 82962; 83036; 83540; 83550; 83605; 83735; 84484; 85025; 85027; 87040; 87077; 87086; 87186; 93005; 93306; 96361; 96374; 96375; 97163; 97167; 97535; 99291

== ENCOUNTER 2025-05-30 07:13 | Emergency (ER) | payer MEDICARE, OTHER, SELFPAY ==
[2025-05-30 07:17] VITALS: BP 153/89
[2025-05-30 07:17] LABS: Glucose - Point of Care 199 mg/dl (70-99)
[2025-05-30 08:08] VITALS: BMI 25.3
[2025-05-30 08:17] VITALS: BP 163/79
[2025-05-30] MEDS: PERCOCET 5/325 1 TABLET PO (08:27)
[2025-05-30] MEDS: NSS 1000 IV (08:28)
[2025-05-30 08:41] LABS: % Basophils 0.4 % (0-2); % Eosinophils 0.5 % (0-6); % Immature Granulocytes 0.4 % (0-0.5); % Lymphocytes 18.7 % (20.5-51.1); % Monocytes 6.3 % (1.7-9.3); % Neutrophils 73.7 % (42.2-75.2); Absolute Eosinophils 0.1 10^3/uL (0-0.7); Absolute Lymphocytes 2.1 10^3/uL (1.2-3.4); Absolute Monocytes 0.7 10^3/uL (0.1-0.6); Absolute Neutrophils 8.1 10^3/uL (1.4-6.5); Hematocrit 37.4 % (37.0-47.0); Hemoglobin 12.9 g/dL (12.0-16.0); Mean Corp Hgb Conc. 34.5 g/dL (33.0-37.0); Mean Corpuscular Hgb 31.9 pg (27.0-31.0); Mean Corpuscular Volume 92.6 fL (81.0-99.0); Mean Platelet Volume 9.6 fL (7.4-10.4); Nucleated Red Blood Cells % 0 %; Platelet Count 252 10^3/uL (130-400); Red Blood Cell Count 4.04 10^6/uL (4.20-5.40); Red Cell Dist. Width 14.3 % (11.5-14.5)
--- NOTE | 2025-05-30 08:43 | ED.GENMED ---
History of Present Illness
General
Chief Complaint: Blood Pressure Problem
Source: patient and records
Time Seen by Provider: 05/30/25 07:47
History of Present Illness
History of Present Illness:
75-year-old female with past medical history of hypertension, hyperlipidemia, [id number] diabetes, chronic back pain presenting to the emergency department for evaluation of a multitude of symptoms including noting her blood pressure was
elevated multiple times upon checking at home, blood sugars being elevated at home despite denying any polyuria polydipsia and polyphasia, exacerbation of her usual back pain, diminished p.o. intake to both solids and liquids, generalized fatigue.
Patient was recently hospitalized here little over 1 week ago for sepsis secondary to a urinary tract infection and metabolic encephalopathy. Patient reports feeling better upon her discharge and had been doing well at home. She denies any fevers,
chills, rigors or any further urinary symptoms here. She was scheduled to see her family doctor in follow-up this week. No known fevers at home. States her blood sugar at home was around 190. She reports compliance with her medications. Of
note, patient did receive an epidural injection into her back in the middle of March for her back pain which she states did not seem to help. Unfortunately she had to miss her pain management appointment while she was hospitalized.
Past History
Past History
ED Past Medical History: HTN, Hypercholesterolemia and NIDDM
ED Past Surgical History: Orthopedic (Rotator cuff repair, torn meniscus repair)
Social History
Tobacco: Non-smoker
Alcohol: None
Drug: None
Personal:
Living: with family
Review of Systems
Review of Systems
All Other Systems: ROS reviewed and negative except as documented in HPI and ROS
Phy Exam
Physical Exam
Physical Exam:
GENERAL: Alert , in no apparent distress
HEAD: Normocephalic atraumatic
EYE: Clear conjunctiva
NECK: Supple
ENT: o/p clr, mmm.
CARDIAC: Borderline tachycardic rate and rhythm, no murmur
LUNGS: Clear breath sounds bilaterally, no acute respiratory distress, no wheezes/rales/rhonchi
ABDOMEN: Soft, without focal tenderness, no r/g, no cvat
NEUROLOGICAL: Alert and oriented
SKIN: Warm and dry, skin intact.
MUSCULOSKELETAL: No edema, well perfused.
PSYCH: Normal and appropriate interaction.
Scores
Heart Failure Risk
Heart Failure Risk Score: Not Applicable
Heart Score for Chest Pain Patients
STEMI patient?: Not applicable
Withdrawal Assessment of Alcohol
Withdrawal Assessment Completed?: Not applicable
Course
Orders/Labs/Results
Orders:
Orders
05/30/25 07:20
Electrocardiogram (*1) Urgent
Reason for Study: Chest Pain
EKG- Treatment ONCE
05/30/25 07:57
0.9% Sodium Chloride 1000 ml [Nss] 1,000 ml IV BOLUS
Oxycodone/Acetaminophen [Percocet 5/325] 1 tablet PO NOW STA
05/30/25 08:25
Basic Metabolic Panel Urgent
Complete Blood Count/With Diff Urgent
Troponin I Urgent
Urinalysis Reflex To Culture Urgent
Date Specimen was Collected: 05/30/25
Time Specimen was Collected: 08:07
Urine Microscopic Reflex Cult Urgent
05/30/25 11:05
Electrocardiogram (*1) Urgent
Reason for Study: Chest Pain
Other Reason for Exam: repeat with trop
EKG- Treatment ONCE
05/30/25 11:09
Troponin I Urgent
Abnormal Lab Results
05/30/25 05/30/25
07:16 08:25
WBC 11.0 H 10^3/uL
(4.8-10.8)
RBC 4.04 L 10^6/uL
(4.20-5.40)
MCH 31.9 H pg
(27.0-31.0)
Absolute Neuts (auto) 8.1 H 10^3/uL
(1.4-6.5)
Absolute Monos (auto) 0.7 H 10^3/uL
(0.1-0.6)
Lymphocytes % 18.7 L %
(20.5-51.1)
Creatinine 0.5 L mg/dL
(0.6-1.0)
Glucose 170 H mg/dl
(70-99)
Calcium 10.5 H mg/dl
(8.4-10.2)
Ur Occult Blood Reflex 2+ A
(Negative)
Urine RBC 3-6 A /HPF
(0-2)
Urine Bacteria (Reflex) Few A
(Negative)
Urine Albumin (Reflex) 2+ A
(Neg - Trace)
POC Glucose 199 H mg/dl
(70-99)
05/30/25 08:25
05/30/25 08:25
Vital Signs
Initial and Last Documented VS:
Initial Vital Signs
Temp Pulse Resp BP Pulse Ox
98.0 F 114 16 153/89 98
05/30/25 07:17 05/30/25 07:17 05/30/25 07:17 05/30/25 07:17 05/30/25 07:17
Last Documented Vital Signs
Temp Pulse Resp BP Pulse Ox
98.0 F 93 22 151/80 96
05/30/25 07:17 05/30/25 11:45 05/30/25 11:45 05/30/25 11:00 05/30/25 11:45
MDM/Problems Addressed
Differential Diagnosis Includes:
- Chronic hypertension
- Hyperglycemia without evidence for DKA/HHNK
- Patient does report compliance with medications but possibility of noncompliance
- Exacerbation of chronic back pain
- Continued UTI/pyelonephritis
- Hyperglycemia possibly due to recent steroid injection/epidural
- Electrolyte imbalance
MDM/Problems Addressed:
75-year-old female presenting to the ER for evaluation of a multitude of symptoms, most of the concerns today do seem to be more chronic in nature. Blood pressure initially on arrival was 150/90. At time of my exam it remains about the same. When
I reviewed patient's blood pressures from her recent admission she had multiple blood pressures that were higher than her presenting pressure today. Patient blood sugar 199 in triage. I do suspect there could be a component of hyperglycemia
secondary to her recent steroid injection. Patient's back pain is also her usual chronic pain, suspect just continued pain from this and discussed with patient we would be unlikely to fix the totality of the problem here
*Pulse Oximetry
SaO2: 98
Oxygen Mode of Delivery: Room air
Patient hypoxic: no
*Critical Care Note
Total Time (30-74mins, 75-104mins- exclusive of procedures): Not Applicable
Patient Management
Discussion with other providers: PCP
Escalation/DeEscalation of care consider admission/obs:
Patient's repeat troponin downtrending. Her blood pressure has remained slightly elevated although not in any emergent range. Patient tolerated p.o. here. I notified the primary care provider about patient's presentation to the ER and they will
ensure she gets follow-up as an outpatient. Patient feels comfortable being discharged home. Aware of return precautions.
ED Attending Note
-
Portions of this chart may have been created with voice recognition software.� Occasional wrong word or��sound alike� substitutions may have occurred due to the inherent limitations of voice recognition software.
Discharge Plan
Departure
Patient Disposition: Home (Routine Discharge)
Date of Disposition: 05/30/25
Time of Disposition: 12:05
Patient with high blood pressure during this ER visit?: Yes
Discharge Problem:
Hypertension, Hyperglycemia, Chronic back pain
Instructions: High Blood Pressure (DC)
Prescriptions:
No Action
lorazepam 0.5 MG tablet
0.5 mg PO HSPRN PRN (Reason: sleep)
metformin 750 MG tablet extended release 24 hr
750 mg PO BID
cholecalciferol (vitamin D3) 2,000 UNITS tablet
2,000 units PO DAILY
lisinopril 40 mg Tablet
40 mg PO DAILY
atorvastatin [Lipitor] 40 mg Tablet
40 mg PO QPM
gabapentin 300 mg Capsule
300 mg PO TID Qty: 90 0RF
oxycodone 5 mg Tablet
5 mg PO Q6H PRN (Reason: severe pain) Qty: 30 0RF
cephalexin 500 mg capsule
500 mg PO BID Qty: 10 0RF
Referrals:
Angle Reynoso CRNP [Family Provider, Family Practice]
Interventions
Interventions:
*Risk Screen - Suicide Last Done: 05/30/25 07:17
*General Assessment Last Done: 05/30/25 08:10
*Neglect/Abuse Screening Last Done: 05/30/25 07:17
*ED- Fall Risk Assessment Last Done: 05/30/25 08:10
*ED COVID-19 Vaccine History Last Done: 05/30/25 08:10
*Nursing Disposition Last Done: 05/30/25 12:15
ED- Cardiac Assessment Last Done: 05/30/25 08:10
ED- Neurological Assessment Last Done: 05/30/25 08:10
ED- Pulmonary Assessment Last Done: 05/30/25 08:10
Discharge Date and Time
Discharge Date/Time: 05/30/25 12:15
Print Language: TUNISIAN
[2025-05-30 08:50] LABS: Urine Albumin 2+ (Neg - Trace); Urine Bilirubin Negative (Negative); Urine Character Clear (Clear); Urine Color Yellow; Urine Glucose Negative (Negative); Urine Ketone Negative (Negative); Urine Leukocyte Negative (Negative); Urine Nitrite Negative (Negative); Urine Occult Blood 2+ (Negative); Urine Urobilinogen Negative (Neg - 1+); Urine pH 6.5 (5.0-9.0)
[2025-05-30 08:57] LABS: Blood Urea Nitrogen 8 mg/dl (7-17); Calcium 10.5 mg/dl (8.4-10.2); Carbon Dioxide 26 mmol/L (22-30); Chloride 101 mmol/L (98-107); Estimated Creatinine Clearance 73 ml/min; Glucose 170 mg/dl (70-99); Potassium 3.8 mmol/L (3.5-5.1); Sodium 138 mmol/L (135-145); eGFR > 60.00
[2025-05-30 09:00] VITALS: BP 158/64
[2025-05-30 09:09] LABS: Troponin I 0.027 ng/ml
[2025-05-30 09:12] LABS: Urine Mucus Few; Urine Squamous Cell 0-2 /LPF (Few)
[2025-05-30 09:13] LABS: Urine Bacteria Few (Negative); Urine Hyaline Cast 0-2 /LPF (0-2); Urine White Cell 0-2 /HPF (0-5)
[2025-05-30 09:14] LABS: Urine Urothelial Cell 0-2 /LPF (FEW)
[2025-05-30 10:00] VITALS: BP 148/67
[2025-05-30 11:00] VITALS: BP 151/80
[2025-05-30 12:00] LABS: Troponin I 0.026 ng/ml
== END 2025-05-30 12:15 | disposition home or self-care (01) ==
LOC: EMR 07:13
PROVIDERS: Physician Assistant Medical; EMERGENCY PHYSICIAN Emergency Medicine; FAMILY PHYSICIAN Nurse Practitioner
DX: I10 Essential (primary) hypertension (principal); E11.65 Type 2 diabetes mellitus with hyperglycemia; G89.29 Other chronic pain; E78.00 Pure hypercholesterolemia, unspecified; M54.9 Dorsalgia, unspecified
CPT/HCPCS: 96360; 99284; 80048; 81003; 81015; 82962; 84484; 85025; 93005

== ENCOUNTER → 2025-06-13 07:24 | Outpatient (REF) | payer MEDICARE, OTHER, SELFPAY | LOC: RAD 07:24 | PROVIDERS: ATTENDING PHYSICIAN Student in an Organized Health Care Education/Training Program | DX: D35.02 Benign neoplasm of left adrenal gland (principal) | CPT/HCPCS: 74177; Q9967 ==

== ENCOUNTER → 2025-07-08 11:53 | Outpatient (REF) | payer MEDICARE, OTHER, SELFPAY | LOC: MRI 3T 11:53 | PROVIDERS: ATTENDING PHYSICIAN Surgery; FAMILY PHYSICIAN Nurse Practitioner | DX: R22.2 Localized swelling, mass and lump, trunk (principal) | CPT/HCPCS: 71552; A9575 ==

== ENCOUNTER 2025-08-03 19:44 | Emergency (ER) | payer MEDICARE, OTHER, SELFPAY ==
[2025-08-03 19:55] VITALS: BP 129/70
--- NOTE | 2025-08-03 21:28 | ED.MUSCINJ ---
HPI-Injury
General
Chief Complaint: Musculo-Skeletal Complaint
Source: patient
Exam Limitations: none
Time Seen by Provider: 08/03/25 20:32
Nursing documentation reviewed up to this point in time: agreed with
History of Present Illness-Injury
Initial Injury comments:
75 yo female fell out of bed 5 days ago and injured her right foot. She has been walking but with pain. She attends physical therapy for her chronic back pain and was at physical therapy today and they noted that the area was swollen and suggested
she come here for an x-ray.
Past History
Past History
ED Past Medical History: HTN, Hypercholesterolemia and NIDDM
ED Past Surgical History: Orthopedic (Rotator cuff repair, torn meniscus repair)
Social History
Tobacco: Non-smoker
Alcohol: None
Drug: None
Personal:
Living: with family
Review of Systems
Review of Systems
Allergies reviewed?: Yes
All Other Systems: ROS reviewed and negative except as documented in HPI and ROS
Musculoskeletal Injury Exam
Musculoskeletal Injury Exam
Base of right great toe:
Pain with Movement?: Mild
Tender to palpation?: Moderate
Soft tissue swelling?: Mild
Malalignment/deformity?: No
Range of motion: Full
Distal skin color and temperature: normal-warm & good color
Capillary Refill: normal
Normal distal neurovascular exam?: Yes
Phy Exam
Physical Exam
Physical Exam:
PHYSICAL EXAMINATION:
General: no apparent distress, not acutely ill
Neuro: alert and oriented.
Psychiatric: well kept. interactive and cooperative
Musculoskeletal: Moves with ease
Skin: Warm, pink.
Injury Course
Orders/Labs/Results
Orders:
Orders
08/03/25 19:56
CR Foot - Right Min 3 Views Urgent
Comment:
Reason For Exam: trauma
08/03/25 21:30
Ortho Boot Right- Treatment ONCE
Short or tall?: Short
MDM/Problems Addressed
Differential Diagnosis Includes:
Sprain versus fracture, gout of great toe
MDM/Problems Addressed:
75 yo female fell out of bed 5 days ago and injured her right foot. She has been walking but with pain. She attends physical therapy for her chronic back pain and was at physical therapy today and they noted that the area was swollen and suggested
she come here for an x-ray.
X-ray right foot initially read by this examiner: Nondisplaced oblique fracture to the medial aspect of the base of the proximal phalanx of the great toe
Walking boot applied, patient referred to her orthopedic doctor.
*Pulse Oximetry
SaO2: 95
Oxygen Mode of Delivery: Room air
Patient hypoxic: not evaluated
*Critical Care Note
Total Time (30-74mins, 75-104mins- exclusive of procedures): Not Applicable
ED Attending Note
-
Portions of this chart may have been created with voice recognition software.� Occasional wrong word or��sound alike� substitutions may have occurred due to the inherent limitations of voice recognition software.
Discharge Plan
Departure
Patient Disposition: Home (Routine Discharge)
Date of Disposition: 08/03/25
Time of Disposition: 21:31
Patient with high blood pressure during this ER visit?: No
Condition: Good
Discharge Problem:
Fracture of great toe of right foot
Instructions: Toe fracture
Prescriptions:
No Action
lorazepam 0.5 MG tablet
0.5 mg PO HSPRN PRN (Reason: sleep)
metformin 750 MG tablet extended release 24 hr
750 mg PO BID
cholecalciferol (vitamin D3) 2,000 UNITS tablet
2,000 units PO DAILY
lisinopril 40 mg Tablet
40 mg PO DAILY
atorvastatin [Lipitor] 40 mg Tablet
40 mg PO QPM
gabapentin 300 mg Capsule
300 mg PO TID Qty: 90 0RF
oxycodone 5 mg Tablet
5 mg PO Q6H PRN (Reason: severe pain) Qty: 30 0RF
cephalexin 500 mg capsule
500 mg PO BID Qty: 10 0RF
Referrals:
[facility] [Other] - Call in 1-3 days for appt
Angle Reynoso CRNP [Family Provider, Family Practice]
Activity Restrictions/Additional Instructions:
As we discussed, you have a fractured toe.
Wear the orthopedic boot until further instructed by your orthopedic doctor sometime within the next week
Tylenol or ibuprofen as needed for pain.
Interventions
Interventions:
*Risk Screen - Suicide Last Done: 08/03/25 21:53
*General Assessment Last Done: 08/03/25 21:53
*Neglect/Abuse Screening Last Done: 08/03/25 21:53
*ED- Fall Risk Assessment Last Done: 08/03/25 21:53
*ED COVID-19 Vaccine History Last Done: 08/03/25 21:53
*Nursing Disposition Last Done: 08/03/25 21:53
ED-Musculoskeletal Assessment Last Done: 08/03/25 21:53
Discharge Date and Time
Discharge Date/Time: 08/03/25 21:56
Print Language: SLOVAK
== END 2025-08-03 21:56 | disposition home or self-care (01) ==
LOC: EMR 19:44
PROVIDERS: EMERGENCY PHYSICIAN Emergency Medicine; FAMILY PHYSICIAN Nurse Practitioner
DX: S92.414A Nondisplaced fracture of proximal phalanx of right great toe, initial encounter for closed fracture (principal); W06.XXXA Fall from bed, initial encounter; M54.9 Dorsalgia, unspecified; I10 Essential (primary) hypertension; E78.00 Pure hypercholesterolemia, unspecified; E11.9 Type 2 diabetes mellitus without complications; G89.29 Other chronic pain; Z88.0 Allergy status to penicillin
CPT/HCPCS: 99283; 29515; 73630